=== PATIENT | male | born 1970 | race Caucasian/White ===

== ENCOUNTER → 2018-07-18 | Emergency (ER) | payer OTHER ==
[~2018-07-18] VITALS: Ht 165.1 cm; Wt 90.7 kg
[~2018-07-18] MED LIST: KETO10TA2 PO; METOPROLOL SUC100 MG PO; TAMS0.4C PO
== END | disposition home or self-care (01) ==
LOC: ER 20:15
DX: R30.0 Dysuria (principal)

== ENCOUNTER 2018-07-27 13:40 | Emergency (ER) | payer OTHER ==
[~2018-07-27] VITALS: Ht 165.1 cm; Wt 93.0 kg
[2018-07-27] MEDS ORDERED: KETO10TA2 PO (15:27)
[2018-07-27] MEDS ORDERED: TAMS0.4C PO (15:27)
[2018-07-27] MEDS ORDERED: PERCOCET 5-3251 EACH PO (15:27)
== END 2018-07-27 18:52 | disposition home or self-care (01) ==
LOC: ER 13:40
DX: N20.1 Calculus of ureter (principal); R10.31 Right lower quadrant pain